=== PATIENT | female | born 1950 | race Caucasian/White ===

== ENCOUNTER 2024-01-13 12:12 | Observation (INO) ==
--- NOTE | 2024-01-13 12:39 | History & Physical Report ---
Date of Service January 13, 2024 Assessment & Plan (1) Sinus node dysfunction: (2) Symptomatic bradycardia: Plan 1. Bradycardia: She has developed bradycardia over the last year based on vital sign measurements and documented on electrocardiography recently this year. Her symptoms are fatigue and tiredness, she has not had lightheadedness, dizziness, presyncope or syncope. 2. AV block: Her electrocardiograms and some of the monitor strips at rest on her Holter monitor show AV block with a junctional escape rhythm. With this she should have a pacemaker, I think she would feel better and I have recommended it. 3. Sinus node dysfunction: She has sinus bradycardia for the most part, but also has AV block and therefore her rate is controlled by junctional escape but her sinus rate is low. A dual-chamber pacer is indicated. I reviewed the indications, procedure, risks and alternatives with the patient, and answered all questions. Patient understands and agrees to the procedure. Consent obtained. I also reviewed the risks and use of sedation, patient understands and consent obtained. History of Present Illness Primary Care Provider: Lucia Arguelles DO This is a 73-year-old woman who has a history of chronic kidney disease, and anemia, hypertension and hyperlipidemia and has recently been identified as having a slow heart rate. She is not very symptomatic with that, she feels fatigued at times and feels like she needs to sleep more than usual (she is very active) but has not had symptoms such as lightheadedness, dizziness, presyncope or syncope. The duration of the bradycardia is a little uncertain based on her symptoms. However based on her heart rate it dropped from the 80-95 range when measured on or before October 18, 2022 to 42-50 from January 31, 2023 until today. I suspect therefore that it occurred sometime around the summer 2022. She had an electrocardiogram performed in July 2023 which shows a junctional bradycardia which I believe represents A-V dissociation although P waves are little hard to discern. The heart rate is 43 bpm. Today she remains in a junctional bradycardia at 42 bpm with evidence of atrial activity dissociated from the ventricular rhythm. Her ventricular complex is narrow suggesting a junctional origin. She is surprisingly asymptomatic, she does feel tired as noted, but is able to be quite active and travels quite a bit. She did wear a Holter monitor from September 02, 2023 through September 06, 2023. During this time her heart rate ranged from 30 to 92 bpm, the slow heart rates typically at night where a number of pauses occurred longest of which was 2.3 seconds. Her average heart rate was 49 bpm. Her P waves are little hard to see on these recordings and it was interpreted as sinus rhythm but I believe the slow heart rates represent A-V dissociation for the most part. She does not have any exertional chest discomfort and has not noticed any leg swelling or other heart failure symptoms. She is on no medications to cause bradycardia. Although a pacemaker is somewhat optional I believe she would feel better with the pacemaker and she is agreeable. Allergies Allergy/AdvReac Type Severity Reaction Status Date / Time morphine AdvReac Intermediate Unverified 12/22/23 14:02 Home Medications Medication Instructions Recorded Confirmed Type aspirin 81 mg tablet,delayed 81 mg PO DAILY 07/13/21 01/13/24 History release (Kai Low Dose Aspirin) multivitamin 1 tab PO DAILY 07/13/21 01/13/24 History omega-3 fatty acids [Fish Oil] See Rx Instructions .Route .COMPLEX 07/26/21 01/13/24 History meclizine 25 mg tablet 25 mg PO TID PRN dizziness or 10/18/22 01/13/24 Rx vertigo #10 tabs calcium with vitamin D 1 tab PO DAILY 08/11/23 01/13/24 History atorvastatin 40 mg tablet (Lipitor) 40 mg PO DAILY #90 tabs 10/08/23 01/13/24 Rx losartan 50 mg tablet 50 mg PO DAILY #90 tabs 10/08/23 01/13/24 Rx cyanocobalamin (vitamin B-12) 1 tab PO DAILY 10/13/23 01/13/24 History cyclobenzaprine 5 mg tablet 5 mg PO TID PRN muscle spasm #20 10/13/23 01/13/24 Rx tabs triamterene 37.5 1 cap PO DAILY #90 caps 11/25/23 01/13/24 Rx mg-hydrochlorothiazide 25 mg capsule Past Med/Surg History Problem List (Updated 12/22/23 @ 15:21 by Dominic Hernández PA-C) Sacroiliitis Sinus node dysfunction AVB (atrioventricular block) Fatigue Symptomatic bradycardia Vertigo Chronic kidney disease, stage 3 (moderate) Hyperlipemia Hypertension Medical History (Updated 12/22/23 @ 15:21 by Dominic Hernández PA-C) Lumbar back pain with radiculopathy affecting right lower extremity Anemia Surgical History S/P appendectomy History of carpal tunnel surgery R wrist H/O: hysterectomy (1989) left ovary Hx of removal of ovary (1992) Family History Mother Heart disease Hypertension Stroke Father Heart disease Myocardial infarction S/P CABG (coronary artery bypass graft) Sister , May 2022 Heart disease Hypertension S/P CABG (coronary artery bypass graft) Uterine cancer Congestive heart failure Family/Other Breast cancer maternal aunt Sister No problems noted. Denies family history of Ovarian cancer Prostate cancer Colorectal cancer Social History Smoking Status: Current every day smoker Tobacco Type: Cigarettes Age Started Using Tobacco: 16; Cigarettes Per Day: 4-5; Second Hand Exposure: Yes; Do You Dip or Chew Tobacco: No; Hx Alcohol Use: No Hx Substance Use: No Preferred Language: Thai Communication Ability: Effective Visual Impairment: No Limitations Hearing Ability: Normal Labor Supervisor Required: No Beliefs That Will Affect Care: None marital status: Current Living Situation: Family Current Living Situation Comment: live w/ son current occupational status: retired current occupation: assistant corporate secretary/dispatcher [employer] How many Children do You have: 2 Feels Safe at Home: Yes Safety Concerns: Feels Safe At This Time Childhood Exposure to Second-Hand Smoke: Yes Diet: regular Diet Comment: regular caffeine: Yes during the past year weight has: remained stable Dental Care, Regularly: Yes Physical Activity Frequency: Daily Seatbelt Use: always Sunscreen Use: Yes Assistive Devices: Denture - Upper and Glasses Physical Exam Physical Exam: Constitutional: Alert, cooperative and in no distress. HEENT: Unremarkable Neck: No jugular venous distention, carotid pulses are normal and equal bilaterally without bruits. Pulmonary: Clear to auscultation bilaterally. Cardiac: Regular slow rhythm with no murmur, gallop or rub. Abdomen: Soft, nontender with normal bowel sounds. Extremities: No edema. Distal pulses intact. Neurologic: No focal findings. Gait is steady. Skin: No rash, ecchymoses or petechiae. Results & Data Results & Data Vital Signs (Past 12 Hours) Vital Signs Temp Resp O2 Del Method 01/13/24 12:15 36.7 C 16 Room Air Laboratory Results Intake and Output 01/12/24 01/13/24 01/13/24 22:59 06:59 14:59 Other: Weight 72.1 kg Weight Measurement Method Standing Scale Patient Weight 01/14/24 06:59 Weight 72.1 kg PG Care Time/CCT Total # of Minutes Spent Total Time Spent with Patient: Total time spent is greater than 50% in coordination of care (as documented) at patient's floor/unit and/or counseling patient: Coding Level of Care Code None Diagnoses Sinus node dysfunction I49.5 Symptomatic bradycardia R00.1
--- NOTE | 2024-01-13 13:09 | Pre Anesthesia Assessment ---
Date of Service January 13, 2024 Pre Sedation Assessment Vital Signs Temp Resp O2 Del Method 01/13/24 12:15 36.7 C 16 Room Air Cardiovascular RRR, no murmur, no edema + bradycardic Respiratory normal respiratory effort, lungs clear to auscultation Pre-Sedation Airway Assessment Smoking Status: Current every day smoker Hx Sleep Apnea: No Short, Thick Neck: No Thyromental Distance: > or= 3.5 Finger Breadths Oral Cavity: + Dentures Mallampati Class: III ASA: ASA3 NPO Status Date of Last Intake of Fluids: 01/12/24 Time of Last Intake of Fluids: 20:00 Date of Last Intake of Solid Food: 01/12/24 Time of Last Intake of Solid Foods: 20:00 Procedure Planning Contraindications for Sedation: none Current Medications Reviewed: Yes Notes The planned sedation has been discussed with the patient. Informed Consent was obtained. I have identified the patient, determined the appropriateness of sedation and have assessed the patient immediately prior to the procedure. All medicine(s) and interventions are by my order.
[2024-01-13] MEDS: LIDOCAINE 1% LOCAL 20 ML VIAL ONE (13:53)
[2024-01-13] MEDS: VANCOMYCIN HCL 1000MG/20ML VIAL ONE (13:54)
[2024-01-13] MEDS: WATER, STERILE FOR INJ 10 ML VIAL ONE (13:54)
[2024-01-13] MEDS: ceFAZolin 330 MG/ML 1 GM VIAL ONE (13:54)
[2024-01-13] MEDS: fentaNYL citrate PF 100 MCG/2 ML VIAL ONE ×2 (15:11→15:12)
[2024-01-13] MEDS: MIDAZOLAM HCL 5 MG/ML 1 ML VIAL ONE (15:12)
--- NOTE | 2024-01-13 15:26 | Electrophysiology Report ---
Date of Service January 13, 2024 Electrophysiology Procedure Electrophysiology Procedure Report Preoperative diagnosis: Sinus node dysfunction and AV block Postoperative diagnosis: Same Procedure: Left subclavian venogram Dual-chamber left bundle branch pacemaker implantation Surgeon: Chema Craft MD Estimated blood loss: 20 cc Complications: None Disposition: Pediatric Physician Assistant recovery Procedure details: After obtaining informed consent for the procedure, the p dev was brought to the laboratory and prepped and draped in the standard sterile manner. The left prepectoral region was anesthetized with 1% lidocaine local anesthetic and left axillary venipuncture was performed by percutaneous technique and a guidewire placed through the left subclavian vein into the superior vena cava. The area was further infiltrated with 1% lidocaine local anesthetic and a 5 cm incision was made parallel to the left clavicle and 2 cm below it and carried down to the anterior pectoralis fascia. A pacemaker pocket was formed by blunt dissection anterior to the pectoralis fascia and a vancomycin-soaked sponge was placed in the pocket. A 9 [place] Medtronic lead introducer was placed over the guidewire into the left subclavian vein, the dilator and guidewire were removed and a bipolar active fixation steroid tipped atrial lead was advanced through the introducer into the superior vena cava. A guidewire was placed through the introducer and the introducer was stripped from the lead and guidewire. The atrial lead was temporarily positioned in the right ventricle for backup pacing. A 7 [place] Medtronic lead introducer was placed over the guidewire into the left subclavian vein, the dilator and guidewire were removed. A C315 His 02 septal sheath was advanced through the introducer over a guidewire and advanced into the right ventricular outflow tract. The guidewire and dilator were removed and the sheath was positioned in a mid septal location. A bipolar active fixation steroid tipped ventricular lead was advanced through the introducer and rotated to advance the screw into the septum. Septal penetration was confirmed by electrogram morphology. Pacing and sensing thresholds were evaluated in bipolar configuration and are noted on the data sheet. The septal sheath was stripped away from the lead. A guidewire was placed back through the introducer and the introducer was removed over the the guidewire. The atrial lead was then removed from the right ventricle. Using a curved stylette the atrial lead was positioned in the region of the atrial appendage and the screw extended fixing the lead in position. Pacing and sensing thresholds were evaluated in bipolar configuration and are recorded on the implant data sheet. Once the leads were in position they were attached to the anterior pectoralis fascia using 2 sutures of 2-0 silk around each lead collar. The vancomycin soaked sponge was removed from the pocket, hemostasis was obtained, the pacemaker was attached to the leads and placed in the pocket with the leads coiled beneath it. The incision was closed with a running double subcutaneous closure of 3-0 Vicryl absorbable suture, followed by running subcuticular skin closure of 4-0 Vicryl absorbable suture. Bacitracin ointment was placed on the incision and a dressing applied. [facility] [place] codes Indication for Procedure (1) Sinus node dysfunction: (2) AVB (atrioventricular block): Pacing Procedure 1: Pacin Insert/Replace Pacer A & V PG Moderate Sedation Codes Moderate Sedation Codes Procedure 1: Sedation/Anesthesia: 73947 Mod Sedation by the same physician;Init15 Min Child Age 5 & Up Procedure 2: Sedation/Anesthesia: 91648 Mod Sedation by the same physician; Ea Tilvlmpcis01 Minutes
--- NOTE | 2024-01-13 16:04 | Post Anesthesia Assessment ---
Date of Service January 13, 2024 Post Sedation Assessment Vital Signs Temp Pulse Resp BP Pulse Ox O2 Del Method 01/13/24 15:45 71 18 122/81 98 Room Air 01/13/24 15:30 71 18 146/73 H 97 Room Air 01/13/24 12:15 36.7 C 16 Room Air Recovery Score Activity: Moves 4 extremities Respiration: Deep Breath/Cough Circulation: +/-20% PreAnes Value Consciousness: Fully Awake Oxygen Saturation: > 92% On Room Air Post Anesthesia Score: 10 Discharge Sedation Level of Care: Fast Track Phase II Post Sedation Plan On clinical assessment, the patient appears to have tolerated the sedation without complications. Patient is recovering as anticipated. Patient will continue to be monitored by nursing and may be discharged when sedation discharge criteria are met per below protocol. Upon Completions of procedure up to 15 minutes continue every 5 minute vital signs and the P.A.R. score; then discharge to a Phase I or Fast Track to Phase II per the following guidelines: * Discharge Patient to appropriate Phase II area if PAR is 8 or greater or return to pre- procedure baseline. The post - procedure orders will be as directed. * If PAR score is less than 8 or not return to pre-procedure baseline then patient will follow Phase I monitoring till PAR is reached for Phase II. The Phase I may be done in procedure room or may call to secure a Phase I area. * If naloxone or flumazenil are used for reversal, hold in Phase I for continued monitoring from when last reversal dose was given for a minimum of 60 minutes or longer pending the nurse and/or physician discretion of patient condition before discharge to Phase II. Please call the Sedation Physician to re-evaluate and complete post-note for discharge to Phase II area. Do NOT discharge from procedure sedation or Phase 1 until post- sedation evaluation note is complete by procedure /sedation MD Sedation Discharge Instructions to be given to the patient at discharge to home.
[2024-01-13] MEDS: ACETAMINOPHEN 325 MG TAB PO PRN (17:22)
--- NOTE | 2024-01-13 17:34 | Electrocardiogram Report ---
Test Reason : Blood Pressure : / mmHG Vent. Rate : 070 BPM Atrial Rate : 070 BPM P-R Int : 138 ms QRS Dur : 128 ms QT Int : 448 ms P-R-T Axes : 253 -54 081 degrees QTc Int : 483 ms AV dual-paced rhythm Abnormal ECG When compared with ECG of 19-NOV-2023 14:29, Electronic ventricular pacemaker has replaced Junctional rhythm Vent. rate has increased BY 28 BPM Confirmed by Michael Cope ([id number]) on 01/13/2024 5:34:20 PM Referred By: Chema Craft Confirmed By:Michael Cope
[2024-01-13] MEDS: SODIUM CHLORIDE 0.9% 500 ML IV ONE (17:57)
[2024-01-14] MEDS: ACETAMINOPHEN W/CODEINE #3 1 TAB PO PRN (04:46)
--- NOTE | 2024-01-14 07:16 | XRay Report ---
XR chest 2V PA/lateral HISTORY: 73 years-old Female EXACT TIME ORDERED Evaluate for pneumothorax and l acute shortness of b reath COMPARISON: None TECHNIQUE: PA and lateral views of the chest FINDINGS: Cardiac silhouette is enlarged. Left subclavian dual lead pacer. Small right pleural effusion. No pne umothorax. The lung mathis are otherwise clear. No overt pulmonary edema. IMPRESSION: 1. No postprocedural pneumothorax. 2. Small right pleural effusion. ACT 112: Negative or not required by law. The above report was generated using voice recognition software. It may contain grammatical, syntax o r spelling errors. Electronically signed by: Tucker Watts M.D. 01/14/2024 7:15 AM
[2024-01-14 07:20] VITALS: RESP 18; TEMP 97.5; O2SAT 94
--- NOTE | 2024-01-14 09:47 | Cardiology Progress Note ---
Date of Service January 14, 2024 Assessment & Plan (1) Status post placement of cardiac pacemaker: Plan 1. Pacemaker: She is doing well post pacemaker implantation, the leads are in good position, the site looks good. Pacing thresholds are excellent. Stable for discharge. Admission and Anticipated Discharge Date Admission Date: January 13, 2024 Subjective She had little bit of hypotension after surgery which responded to a small amount of fluid intravenously. This has not recurred. She is feeling well today, no incisional discomfort, no chest discomfort or shortness of breath. Physical Exam Physical Exam: The incision is dry, no bleeding on the bandage. No swelling or ecchymosis. Lungs are clear Cardiac rhythm is regular with no rub Results & Data Vital Signs (Past 12 Hours) Vital Signs Temp Pulse Pulse Resp BP Pulse Ox O2 Del Method 01/14/24 07:33 70 01/14/24 07:19 36.4 C L 71 18 103/68 94 Room Air 01/14/24 04:11 36.6 C 70 22 98/58 L 95 Room Air 01/13/24 23:00 70 01/13/24 22:00 36.7 C 71 24 113/60 94 Room Air Diagnostic Findings Postop ECG: Appropriate atrial and ventricular pacing Telemetry: Normal pacemaker function Chest x-ray: Good lead position, no pneumothorax Pacemaker evaluation: PG Care Time/CCT Total # of Minutes Spent Total Time Spent with Patient: Total time spent is greater than 50% in coordination of care (as documented) at patient's floor/unit and/or counseling patient: Coding Level of Care Code 49249 Post Operative Follow-Up Diagnoses Status post placement of cardiac pacemaker Z95.0 CPT Codes Dual Lead Pacemaker System - 71175 ([id number])
[2024-01-14 11:24] VITALS: BP 90/59; PULSE 71
--- NOTE | 2024-01-14 11:56 | Discharge Summary ---
Date of Service January 14, 2024 Admission HPI Per Admitting Provider This is a 73-year-old woman who has a history of chronic kidney disease, and anemia, hypertension and hyperlipidemia and has recently been identified as having a slow heart rate. She is not very symptomatic with that, she feels fatigued at times and feels like she needs to sleep more than usual (she is very active) but has not had symptoms such as lightheadedness, dizziness, presyncope or syncope. The duration of the bradycardia is a little uncertain based on her symptoms. However based on her heart rate it dropped from the 80-95 range when measured on or before October 18, 2022 to 42-50 from January 31, 2023 until today. I suspect therefore that it occurred sometime around the summer 2022. She had an electrocardiogram performed in July 2023 which shows a junctional bradycardia which I believe represents A-V dissociation although P waves are little hard to discern. The heart rate is 43 bpm. Today she remains in a junctional bradycardia at 42 bpm with evidence of atrial activity dissociated from the ventricular rhythm. Her ventricular complex is narrow suggesting a junctional origin. She is surprisingly asymptomatic, she does feel tired as noted, but is able to be quite active and travels quite a bit. She did wear a Holter monitor from September 02, 2023 through September 06, 2023. During this time her heart rate ranged from 30 to 92 bpm, the slow heart rates typically at night where a number of pauses occurred longest of which was 2.3 seconds. Her average heart rate was 49 bpm. Her P waves are little hard to see on these recordings and it was interpreted as sinus rhythm but I believe the slow heart rates represent A-V dissociation for the most part. She does not have any exertional chest discomfort and has not noticed any leg swelling or other heart failure symptoms. She is on no medications to cause bradycardia. Although a pacemaker is somewhat optional I believe she would feel better with the pacemaker and she is agreeable. Admission Exam (Per Admitting) Constitutional Constitutional: Alert, cooperative and in no distress. HEENT: Unremarkable Neck: No jugular venous distention, carotid pulses are normal and equal bilaterally without bruits. Pulmonary: Clear to auscultation bilaterally. Cardiac: Regular slow rhythm with no murmur, gallop or rub. Abdomen: Soft, nontender with normal bowel sounds. Extremities: No edema. Distal pulses intact. Neurologic: No focal findings. Gait is steady. Skin: No rash, ecchymoses or petechiae. Discharge Data Procedures Performed Operation Date: 01/13/24 13:00 Actual Procedures p Pacer with A/V Leads (Dual) - Chema Craft MD Hospital Course (1) Symptomatic bradycardia: (2) Status post placement of cardiac pacemaker: Plan 1. Symptomatic bradycardia: This was due to sinus node dysfunction as well as AV block, a pacemaker is indicated. 2. A pacemaker was implanted on January 13, 2024 without difficulty and it is working well this morning. The leads are in good position on chest x-ray and the site looks good. She is stable for discharge. Coding Level of Care Code None Diagnoses Symptomatic bradycardia R00.1 Status post placement of cardiac pacemaker Z95.0
--- NOTE | 2024-01-14 20:10 | Electrocardiogram Report ---
Test Reason : Blood Pressure : / mmHG Vent. Rate : 070 BPM Atrial Rate : 070 BPM P-R Int : 140 ms QRS Dur : 126 ms QT Int : 462 ms P-R-T Axes : 020 -46 080 degrees QTc Int : 498 ms AV dual-paced rhythm Abnormal ECG When compared with ECG of 13-JAN-2024 15:43, No significant change was found Confirmed by Chema Craft ([id number]) on 01/14/2024 8:10:05 PM Referred By: Chema Craft Confirmed By:Chema Craft
== END 2024-01-14 12:07 | disposition home or self-care (01) ==
LOC: 2E 12:12 → EP 12:12